=== PATIENT | female | born 1985 | race Caucasian/White ===

== ENCOUNTER 2025-01-01 16:31 | Emergency (ER) | payer SELFPAY ==
[~2025-01-01] VITALS: Ht 162.6 cm; Wt 56.7 kg
[2025-01-01 16:32] VITALS: BP 102/56
[2025-01-01 17:12] VITALS: BP 112/60; O2SAT 100
== END 2025-01-01 17:13 | disposition home or self-care (01) ==
LOC: ER 16:31
DX: R06.02 Shortness of breath (principal); Z77.098 Contact with and (suspected) exposure to other hazardous, chiefly nonmedicinal, chemicals; Z88.7 Allergy status to serum and vaccine
CPT/HCPCS: A4606; A4663